=== PATIENT | male | born 1995 | race Caucasian/White ===

== ENCOUNTER 2016-11-13 19:33 | Emergency (ER) | payer BC, OTHER ==
[2016-11-13 19:45] VITALS: BP 141/60
[2016-11-13] MEDS ORDERED: Meperidine PF 25 MG/ML Syringe ONE (19:57)
[2016-11-13] MEDS ORDERED: Meperidine PF 25 MG/ML Syringe IM ONE (20:08)
[2016-11-13] MEDS ORDERED: Cephalexin 250 MG Cap PO ONE (20:20)
[2016-11-13] MEDS ORDERED: Cephalexin 250 MG Cap ONE (20:22)
[2016-11-13] MEDS ORDERED: Bacitracin/Neomycin/Polymyxin B Oint 0.9 GM U/D Packet ONE (20:22)
[2016-11-13] MEDS ORDERED: Acetaminophen/HYDROcodone 325-5 MG Tab PO ONE (20:30)
[2016-11-13] MEDS ORDERED: Bacitracin/Neomycin/Polymyxin B Oint 0.9 GM U/D Packet TOP ONE (20:30)
[2016-11-13] MEDS ORDERED: Acetaminophen/HYDROcodone 325-5 MG Tab ONE (20:31)
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
== END 2016-11-13 20:45 | disposition home or self-care (01) ==
LOC: KA.ED 19:33
DX: S91.302A Unspecified open wound, left foot, initial encounter (principal); W34.00XA Accidental discharge from unspecified firearms or gun, initial encounter
CPT/HCPCS: 73630; 96372; 99283; A9270; J2175